=== PATIENT | female | born 1955 | race Caucasian/White ===

== ENCOUNTER → 2023-08-15 08:27 | Outpatient (REF) | payer MEDICARE, SELFPAY ==
[2023-08-15 12:32] LABS: % Basophils 1.3 % (0-2); % Eosinophils 2.9 % (0-6); % Immature Granulocytes 0.3 % (0-0.5); % Lymphocytes 26.6 % (20.5-51.1); % Neutrophils 55.9 % (42.2-75.2); Absolute Basophils 0.1 10^3/uL (0-0.2); Absolute Eosinophils 0.1 10^3/uL (0-0.7); Absolute Monocytes 0.5 10^3/uL (0.1-0.6); Absolute Neutrophils 2.1 10^3/uL (1.4-6.5); Hematocrit 42.6 % (37.0-47.0); Hemoglobin 13.7 g/dL (12.0-16.0); Mean Corp Hgb Conc. 32.2 g/dL (33.0-37.0); Mean Corpuscular Volume 99.5 fL (81.0-99.0); Mean Platelet Volume 9.9 fL (7.4-10.4); Nucleated Red Blood Cells % 0 %; Platelet Count 282 10^3/uL (130-400); Red Blood Cell Count 4.28 10^6/uL (4.20-5.40); Red Cell Dist. Width 13.2 % (11.5-14.5); White Blood Cell Count 3.8 10^3/uL (4.8-10.8)
[2023-08-15 13:03] LABS: ALT (SGPT) 15 U/L (0-35); AST (SGOT) 24 U/L (14-36); Albumin 4.1 g/dl (3.5-5.0); Alkaline Phosphatase 76 U/L (38-126); Blood Urea Nitrogen 13 mg/dl (7-17); Calcium 9.2 mg/dl (8.4-10.2); Carbon Dioxide 26 mmol/L (22-30); Chloride 105 mmol/L (98-107); Glucose 84 mg/dl (70-99); HDL Cholesterol 71 mg/dl; Iron 121 ug/dl (37-170); LDL Cholesterol, Calculated 109 mg/dl; Potassium 4.1 mmol/L (3.5-5.1); Sodium 135 mmol/L (135-145); Total Bilirubin 0.6 mg/dl (0.2-1.3); Total Cholesterol 207 mg/dl (50-199); Total Protein 6.5 g/dl (6.3-8.2); Triglyceride 137 mg/dl (10-149); Very Low Density Lipoprotein 27 mg/dl (0-30); eGFR > 60.00
[2023-08-15 13:36] LABS: Ferritin 25.4 ng/ml (11.1-264.0)
[2023-08-15 13:50] LABS: Vitamin B12 629 pg/ml (239-931)
[2023-08-15 15:41] LABS: Folate > 20.0 ng/ml (2.76-20)
== END ==
LOC: HWLAB 08:27
PROVIDERS: ATTENDING PHYSICIAN Family Medicine
DX: Z00.00 Encounter for general adult medical examination without abnormal findings (principal); D50.9 Iron deficiency anemia, unspecified; D75.89 Other specified diseases of blood and blood-forming organs; E78.00 Pure hypercholesterolemia, unspecified; I10 Essential (primary) hypertension
CPT/HCPCS: 36415; 80053; 80061; 82607; 82728; 82746; 83540; 85025

== ENCOUNTER → 2024-02-02 08:04 | Outpatient (REF) | payer MEDICARE, SELFPAY | LOC: HWRAD 08:04 | PROVIDERS: ATTENDING PHYSICIAN Internal Medicine Gastroenterology; FAMILY PHYSICIAN Family Medicine | DX: R10.9 Unspecified abdominal pain (principal) | CPT/HCPCS: 76700 ==

== ENCOUNTER → 2024-02-17 08:19 | Outpatient (REF) | payer MEDICARE, SELFPAY ==
[2024-02-17 10:52] LABS: Blood Urea Nitrogen 14 mg/dl (7-17); Carbon Dioxide 21 mmol/L (22-30); Chloride 106 mmol/L (98-107); Glucose 95 mg/dl (70-99); Potassium 4.6 mmol/L (3.5-5.1); Sodium 143 mmol/L (135-145); eGFR > 60.00
== END ==
LOC: HWLAB 08:19
PROVIDERS: ATTENDING PHYSICIAN Internal Medicine Gastroenterology; FAMILY PHYSICIAN Family Medicine
DX: K83.8 Other specified diseases of biliary tract (principal)
CPT/HCPCS: 36415; 80048

== ENCOUNTER → 2024-02-21 17:04 | Outpatient (REF) | payer MEDICARE, SELFPAY | LOC: HWRAD 17:04 | PROVIDERS: ATTENDING PHYSICIAN Family Medicine | DX: M79.2 Neuralgia and neuritis, unspecified (principal) | CPT/HCPCS: 72050 ==

== ENCOUNTER → 2024-03-07 12:54 | Outpatient (REF) | payer MEDICARE, SELFPAY | LOC: MRI 3T 12:54 | PROVIDERS: ATTENDING PHYSICIAN Internal Medicine Gastroenterology; FAMILY PHYSICIAN Family Medicine | DX: K83.8 Other specified diseases of biliary tract (principal) | CPT/HCPCS: 74183; A9575 ==

== ENCOUNTER → 2024-03-27 07:54 | Outpatient (REF) | payer MEDICARE, SELFPAY ==
[2024-03-27 12:56] LABS: ALT (SGPT) 15 U/L (0-35); AST (SGOT) 25 U/L (14-36); Alkaline Phosphatase 65 U/L (38-126); Direct Bilirubin 0.1 mg/dl (0.0-0.4); Total Bilirubin 0.6 mg/dl (0.2-1.3); Total Protein 6.3 g/dl (6.3-8.2)
== END ==
LOC: HWLAB 07:54
PROVIDERS: ATTENDING PHYSICIAN Internal Medicine Gastroenterology; FAMILY PHYSICIAN Family Medicine
DX: K83.8 Other specified diseases of biliary tract (principal)
CPT/HCPCS: 36415; 80076

== ENCOUNTER 2024-05-24 06:20 | Day surgery (SDC) | payer MEDICARE, SELFPAY | END 2024-05-24 14:32 | disposition home or self-care (01) | LOC: GI 06:20 | PROVIDERS: ATTENDING PHYSICIAN Internal Medicine Gastroenterology | DX: R13.10 Dysphagia, unspecified (principal); K44.9 Diaphragmatic hernia without obstruction or gangrene; Q39.9 Congenital malformation of esophagus, unspecified; K31.89 Other diseases of stomach and duodenum; K21.9 Gastro-esophageal reflux disease without esophagitis | CPT/HCPCS: 43239; 88305; 88342 ==

== ENCOUNTER → 2024-05-29 09:14 | Outpatient (REF) | payer MEDICARE, SELFPAY | LOC: RAD 09:14 | PROVIDERS: ATTENDING PHYSICIAN Internal Medicine Gastroenterology; FAMILY PHYSICIAN Family Medicine | DX: R13.19 Other dysphagia (principal) | CPT/HCPCS: 74246 ==

== ENCOUNTER → 2024-07-05 14:02 | Outpatient (REF) | payer OTHER, SELFPAY | LOC: WDC 14:02 | PROVIDERS: ATTENDING PHYSICIAN Obstetrics & Gynecology; FAMILY PHYSICIAN Family Medicine | DX: Z12.31 Encounter for screening mammogram for malignant neoplasm of breast (principal) | CPT/HCPCS: 77063; 77067 ==

== ENCOUNTER → 2024-08-14 08:35 | Outpatient (REF) | payer OTHER, SELFPAY ==
[2024-08-14 12:38] LABS: Urine Albumin Negative (Neg - Trace); Urine Bilirubin Negative (Negative); Urine Character Clear (Clear); Urine Color Yellow; Urine Glucose Negative (Negative); Urine Ketone Negative (Negative); Urine Leukocyte 2+ (Negative); Urine Nitrite Negative (Negative); Urine Occult Blood Negative (Negative); Urine Specific Gravity 1.015 (<1.030); Urine Urobilinogen Negative (Neg - 1+); Urine pH 6.5 (5.0-9.0)
[2024-08-14 12:43] LABS: % Basophils 1.2 % (0-2); % Eosinophils 3.1 % (0-6); % Lymphocytes 25.5 % (20.5-51.1); % Neutrophils 56.2 % (42.2-75.2); Absolute Eosinophils 0.1 10^3/uL (0-0.7); Absolute Lymphocytes 0.8 10^3/uL (1.2-3.4); Absolute Monocytes 0.5 10^3/uL (0.1-0.6); Absolute Neutrophils 1.8 10^3/uL (1.4-6.5); Hematocrit 39.4 % (37.0-47.0); Hemoglobin 12.8 g/dL (12.0-16.0); Mean Corp Hgb Conc. 32.5 g/dL (33.0-37.0); Mean Corpuscular Hgb 32.2 pg (27.0-31.0); Mean Platelet Volume 9.8 fL (7.4-10.4); Nucleated Red Blood Cells % 0 %; Platelet Count 270 10^3/uL (130-400); Red Blood Cell Count 3.98 10^6/uL (4.20-5.40); Red Cell Dist. Width 13.1 % (11.5-14.5); White Blood Cell Count 3.2 10^3/uL (4.8-10.8)
[2024-08-14 12:49] LABS: INR 0.99; PT 13.4 Sec (11.4-14.6)
[2024-08-14 12:50] LABS: APTT 26.9 Sec (23.4-35.0)
[2024-08-14 12:57] LABS: ALT (SGPT) 16 U/L (0-35); AST (SGOT) 24 U/L (14-36); Albumin 4.2 g/dl (3.5-5.0); Alkaline Phosphatase 76 U/L (38-126); Blood Urea Nitrogen 15 mg/dl (7-17); Calcium 9.6 mg/dl (8.4-10.2); Carbon Dioxide 28 mmol/L (22-30); Chloride 103 mmol/L (98-107); Glucose 88 mg/dl (70-99); HDL Cholesterol 66 mg/dl; LDL Cholesterol, Calculated 121 mg/dl; Potassium 4.2 mmol/L (3.5-5.1); Sodium 137 mmol/L (135-145); Total Bilirubin 0.8 mg/dl (0.2-1.3); Total Cholesterol 214 mg/dl (50-199); Total Protein 6.5 g/dl (6.3-8.2); Triglyceride 138 mg/dl (10-149); Very Low Density Lipoprotein 27 mg/dl (0-30); eGFR > 60.00
[2024-08-14 13:10] LABS: Urine Squamous Cell 16-20 /LPF (Few)
[2024-08-14 13:11] LABS: Urine Bacteria Few (Negative); Urine Red Blood Cell 0-2 /HPF (0-2)
[2024-08-14 13:29] LABS: TSH 3.11 uIU/ml (0.47-4.68)
[2024-08-14 13:33] LABS: Ferritin 18.4 ng/ml (11.1-264.0)
== END ==
LOC: HWLAB 08:35
PROVIDERS: FAMILY PHYSICIAN Family Medicine
DX: Z01.818 Encounter for other preprocedural examination (principal); I10 Essential (primary) hypertension; D50.9 Iron deficiency anemia, unspecified; E78.00 Pure hypercholesterolemia, unspecified; K83.8 Other specified diseases of biliary tract
CPT/HCPCS: 36415; 80053; 80061; 81003; 81015; 82728; 84443; 85025; 85610; 85730

== ENCOUNTER → 2024-08-23 10:29 | Outpatient (REF) | payer OTHER, SELFPAY | LOC: HWCARD 10:29 | PROVIDERS: ATTENDING PHYSICIAN Surgery; FAMILY PHYSICIAN Family Medicine | DX: Z01.818 Encounter for other preprocedural examination (principal) | CPT/HCPCS: 93005 ==

== ENCOUNTER → 2024-09-05 07:13 | Outpatient (REF) | payer OTHER, SELFPAY | LOC: RAD 07:13 | PROVIDERS: ATTENDING PHYSICIAN Internal Medicine Gastroenterology; FAMILY PHYSICIAN Family Medicine | DX: K83.9 Disease of biliary tract, unspecified (principal) | CPT/HCPCS: 76700 ==